=== PATIENT | male | born 1990 | race African-American/Black ===

== ENCOUNTER 2019-04-13 15:10 | Emergency (ER) | payer MEDICAID, SELFPAY ==
[2019-04-13 15:23] VITALS: BP 113/66; PULSE 75; RESP 18; TEMP 37.5; O2SAT 99
[2019-04-13 15:39] LABS: Basophils Percent Auto 0.4 % (0.2-1.2); Eosinophils Absolute Auto 0.2 K/mm3 (0-0.3); Eosinophils Percent Auto 3.5 % (0-4.4); Hematocrit 42.9 % (42.0-52.0); Hemoglobin 13.8 g/dL (14.0-18.0); Immature Granulocyte Absolute 0.01 K/mm3 (0.00-0.031); Immature Granulocyte Percent A 0.2 % (0-0.5); Lymphocytes Absolute Auto 1.85 K/mm3 (0.9-3.2); Lymphocytes Percent Auto 35.6 % (18.3-44.2); Mean Corpuscular HGB Conc 32.2 g/dl (32-36); Mean Corpuscular Hemoglobin 28.3 pg (26-34); Mean Corpuscular Volume 87.9 fl (80-100); Mean Platelet Volume 8.8 fl (7.4-10.4); Monocytes Absolute Auto 0.5 K/mm3 (0.1-0.6); Monocytes Percent Auto 9.6 % (2.6-8.5); Neutrophils Absolute Auto 2.6 K/mm3 (1.3-6.7); Neutrophils Percent Auto 50.7 % (45.5-73.1); Platelet Count Result 233 k/mm3 (150-375); Red Blood Count 4.88 M/mm3 (4.6-6.20); Red Cell Distribution Width 13.7 % (11.5-14.5); White Blood Count 5.2 K/mm3 (4.5-10.0)
[2019-04-13 15:50] LABS: Alanine Aminotransferase 19 U/L (4-50); Albumin Level 4.2 g/dL (3.5-5.1); Alkaline Phosphatase 62 U/L (38-126); Aspartate Amino Transferase 27 U/L (17-59); Bilirubin,Total 0.5 mg/dL (0.2-1.3); Blood Urea Nitrogen 9 mg/dL (9-20); Calcium 9.5 mg/dL (8.4-10.2); Carbon Dioxide 28 mmol/L (22-30); Chloride 102 mmol/L (98-107); Estimated CRCL calculation 147 ml/min; Estimated Glomerular Filt Rate > 60; Glucose 87 mg/dL (75-110); Lipase 37 U/L (23-300); Sodium 143 mmol/L (137-145)
--- NOTE | 2019-04-13 16:03 | ED.ABDPAIN ---
HPI - Abdominal Pain General Chief Complaint: Abdominal Pain Stated Complaint: abd pain Time Seen by Provider: 04/13/19 16:03 Source: patient and RN notes reviewed Mode of arrival: other Limitations: no limitations History of Present Illness HPI narrative: Pt is a 28 y/o male who presents to the ED with c/o lower abdominal cramping that began this morning after leaving [facility]. He notes that he was at [facility] for right shoulder pain and he was concerned he might be a diabetic. He notes that he has an appointment at [facility] for case management on Monday (04/15/19). Pt notes that he is homeless, but lives at a [facility] in [facility]. Pt notes that after he is discharged he plans on going to a [facility] in [place], [place]. Pt denies a fever, diarrhea, constipation, and blood in his stools. MD elicited complaint: abdominal pain Onset (ago): hour(s) Location: other (lower) Quality: cramping Associated symptoms: denies other symptoms Related Data Allergies Allergy/AdvReac Type Severity Reaction Status Date / Time No Known Allergies Allergy Verified 04/13/19 16:11 Review of Systems Review of Systems: All systems reviewed & are unremarkable except as noted in HPI and below Constitutional: Constitutional: Denies fever(s) Gastrointestinal: Gastrointestinal: Reports abdominal pain (lower, cramping), Denies hematochezia, Denies constipation and Denies diarrhea PMFSH Past Medical History Medical History (Updated 04/13/19 @ 17:17 by Viktor Llamas MD) Bipolar 1 disorder Depression Surgical History Surgical History (Updated 04/13/19 @ 16:12 by Linda Mckeon) Surgical history unknown Social History Social History (Updated 04/13/19 @ 16:23 by Linda Mckeon) Smoking status: Unknown if ever smoked Living arrangements: penitentiary Gender identity (if verbalized by the patient): Male Exam Const: General: healthy appearing, no acute distress and well developed Nutritional Appearance: well nourished Orientation/consciousness: patient oriented x3 (alert) and Other orientation findings (Alert) Limitations: no limitations HENMT: Head: normocephalic and atraumatic Ears: external ears normal General nose exam: No nasal discharge present and no epistaxis Face and sinus: face symmetric Mouth: Yes lip normal, Yes tongue normal and Yes moist mucous membranes Throat: other (No exudate, no erythema) Eyes: Conjunctivae: conjunctivae normal Sclera: sclerae normal EOM: EOMs intact bilaterally Neck: Neck: full ROM, no lymphadenopathy and supple Thyroid: thyroid normal Resp: Effort & Inspection: normal respiratory effort Auscultation: clear to auscultation bilaterally, no rales, no rhonchi, no wheezes and other (breath sounds equal) Cardio: Rate: regular rate Rhythm: regular rhythm Heart sounds: no gallops and no murmurs GI: Inspection: non-distended GI Palp: No abdominal tenderness and Yes Soft to palpation Auscultation: other (bowel sounds present) Back/Spine/Pelvis: Back: no CVA tenderness Thoracic/Lumbar Spine: thoracic and lumbar spine normal to inspection Skin: General skin exam: normal color and no rashes or lesions noted Neuro: General: patient oriented x3 (alert), moves all extremities and no focal motor deficits Cranial nerves: Yes facial symmetry Speech: normal speech Motor exam (neuro): Motor abnormalities not present Extrem: General: other (bandages on both forearms from previous lab testings yesterday and today) Psych: Appearance: disheveled Affect: normal affect Attitude: cooperative (and pleasant) Course Course Emergency Course: w/u not very compelling apart from abnl u/a std testing pending will tx empirically in case of urethritis He has multiple behavioral health referrals from yesterday and today already in hand for bipolar Vital Signs Vital signs: Vital Signs Temperature 37.5 C 04/13/19 15:23 Pulse Rate 75 04/13/19 15:23 Respiratory Rate 18
[2019-04-13 16:38] LABS: Add Urine Microscopic? YES; Appearance Urine Clear (Clear); Bilirubin Urine Negative (Negative); Blood Urine Negative (Negative); Calcium Oxalate Crystals Urine Present /hpf; Color Urine Yellow (Yellow); Glucose Urine UA Negative (Negative); Ketones Urine Trace mg/dL (Negative); Leukocyte Esterase Ur Trace LEU/UL (Negative); Mucus Urine Heavy /lpf; Nitrate Urine Negative (Negative); Protein Urine 2+ mg/dL (Negative); Squamous Epithelial Cell Urine Rare /hpf (Few)
[2019-04-13 16:39] LABS: Specific Grav Ur 1.033 (1.001-1.035)
[2019-04-13] MEDS: AZITHROMYCIN 250 MG TABLET 1000 MG PO (17:28)
[2019-04-13] MEDS: cefTRIAXone 250 MG VIAL IM (17:28)
[2019-04-13 17:40] VITALS: BP 136/78; PULSE 80; RESP 16; O2SAT 97
== END 2019-04-13 17:40 | disposition home or self-care (01) ==
PROVIDERS: Emergency Medicine; Emergency Provider Emergency Medicine
DX: R10.30 Lower abdominal pain, unspecified (principal); Z59.0 Homelessness
CPT/HCPCS: 36415; 80053; 81001; 83690; 85025; 87491; 87591; 96372; 99283; A9270; J0696